=== PATIENT | female | born 1990 | race Caucasian/White ===

== ENCOUNTER 2019-06-01 21:47 | Emergency (ER) | payer SELFPAY ==
[~2019-06-01] VITALS: Ht 167.6 cm; Wt 81.6 kg
--- NOTE | 2019-06-01 21:52 | NUR ---
UNABLE TO OBTAIN VS DURING TRIAGE D/T NON COOPERATIVE
[2019-06-01 22:34] LABS: BASOPHILS # (AUTO) 0.1 /CMM (0.0-0.2); BASOPHILS % (AUTO) 0.8 % (0.0-2.0); EOSINOPHILS % (AUTO) 1.3 % (0.0-6.0); HEMATOCRIT 44 % (33-45); HEMOGLOBIN 14.5 g/dL (11.5-14.8); LYMPHOCYTES # (AUTO) 3.2 /CMM (0.8-4.8); LYMPHOCYTES % (AUTO) 23.8 % (20.0-44.0); MEAN CORPUSCULAR HGB CONC 33 g/dl (31.0-36.0); MEAN CORPUSCULAR VOLUME 92 fL (82-100); MONOCYTES # (AUTO) 0.6 /CMM (0.1-1.30); MONOCYTES % (AUTO) 4.5 % (2.0-12.0); NEUTROPHILS # (AUTO) 9.4 /CMM (1.8-8.9); NEUTROPHILS % (AUTO) 69.6 % (43.0-81.0); PLATELET COUNT (AUTO) 391 /CMM (150-450); RED BLOOD CELL COUNT(AUTO) 4.76 MIL/uL (4.0-5.2); WHITE BLOOD COUNT (AUTO) 13.5 K/uL (4.3-11.0)
[2019-06-01 22:49] LABS: CALCIUM, SERUM 10.3 mg/dL (8.5-10.1); CREATININE 0.9 mg/dL (0.6-1.3); POTASSIUM 3.5 mmol/L (3.5-5.1)
[2019-06-01 22:54] LABS: BILIRUBIN,TOTAL 0.2 mg/dL (0.2-1.0); SALICYLATE 3.2 mg/dL (2.8-20.0)
[2019-06-01] MEDS ORDERED: HALOPERIDOL LACTATE INJ 5 MG/ML VIAL ONE (23:45)
[2019-06-02] MEDS ORDERED: HALOPERIDOL LACTATE INJ 5 MG/ML VIAL IM ONE
[2019-06-02] MEDS ORDERED: diphenhydrAMINE HCL 50 MG/ML VIAL ONE (00:13)
[2019-06-02] MEDS ORDERED: diphenhydrAMINE HCL 50 MG/ML VIAL IM ONE (00:30)
--- NOTE | 2019-06-02 01:13 | NUR ---
[employer] OFFICERS AT BEDSIDE.
--- NOTE | 2019-06-02 01:32 | NUR ---
PT TRANSPORTED TO RADIOLOGY FOR CT HEAD.
--- NOTE | 2019-06-02 01:45 | NUR ---
PT BACK FROM RADIOLOGY. PENDING CT RESULT.
--- NOTE | 2019-06-02 02:19 | NUR ---
PT ASLEEP, NO ACUTE DISTRESS NOTED, RESP EVEN AND UNLABORED. 1:1 SITTER REMAINS AT BEDSIDE. CALL LIGHT WIHTIN REACH. WILL CONTINUE TO MONITOR PT.
--- NOTE | 2019-06-02 05:13 | NUR ---
PT AAOX4 NO ACUTE DISTRESS NOTED, RESP EVEN AND UNLABORED. PT AMBULATORY TO THE BATHROOM WITH STEADY GAIT NOTED.
--- NOTE | 2019-06-02 05:15 | NUR ---
PT'S INFORMATION OBTAINED AND RELAYED TO ADMITTING DEPT TO INPUT INFORMATION.
--- NOTE | 2019-06-02 05:30 | NUR ---
PT AMBULATORY W/O ASSIST ON STEADY GAIT. PT IS NOT CLINICALLY INTOXICATED. VSS
[2019-06-02 06:42] VITALS: BP 132/66
== END 2019-06-02 06:43 | disposition home or self-care (01) ==
LOC: EDBD 21:49 → ER 21:49
DX: F10.129 Alcohol abuse with intoxication, unspecified (principal); R45.6 Violent behavior; R51 Headache; Y90.8 Blood alcohol level of 240 mg/100 ml or more
CPT/HCPCS: 36415; 70450; 80048; 80076; 80307; 80329; 85025; 96372 ×2; 99284; G0480; J1200; J1630